=== PATIENT | female | born 1965 | race Caucasian/White ===

== ENCOUNTER 2017-05-13 05:50 | Emergency (ER) | payer OTHER ==
[~2017-05-13] VITALS: Ht 170.2 cm; Wt 95.0 kg
[2017-05-13 05:51] VITALS: BP 180/90; PULSE 77; RESP 16; TEMP 98.1; O2SAT 100
[2017-05-13] MEDS ORDERED: TOPA50TA7 PO (06:00)
--- NOTE | 2017-05-13 06:15 | PD ---
HPI Chief Complaint: Injury Time Seen by Provider: 06:02 Travel History International Travel<30 days: No Contact w/Intl Traveler<30days: No Traveled to known affect area: No History of Present Illness HPI 52-year-old white female presents to emergency Department with complaints of right Achilles pain. She states that she was walking on a flat surface and developed sudden onset pain and what she felt was a popping sensation. Since then she's had difficulty ambulating due to pain. Pain is mild to moderate. Some relief with elevation. Worse with walking. She denies any use of quinolones. No direct trauma. [facility] Past Medical History Narrative Medical Migraines Headaches: Yes Immunizations Current: Yes Tetanus Vaccination: < 5 Years Influenza Vaccination: Yes ?: Not Past Surgical History Surgical History: No Previous Surgery Social History Alcohol Use: No Tobacco Use: No Substance Use: No Allergies-Medications (Allergen,Severity, Reaction): Coded Allergies: cephalexin (Verified Allergy, Severe, Rash, 05/13/17) penicillin V (Verified Allergy, Severe, Arrhythmias, 05/13/17) Reported Meds & Prescriptions Reported Meds & Active Scripts Active Reported Topamax (Topiramate) 50 Mg Tab 50 Mg PO DAILY Review of Systems General / Constitutional: No: Fever Eyes: No: Visual changes HENT: No: Headaches Cardiovascular: No: Chest Pain or Discomfort Respiratory: No: Shortness of Breath Gastrointestinal: No: Abdominal Pain Genitourinary: No: Dysuria Musculoskeletal: Positive: Limited ROM, Weakness, Pain Skin: No Rash Neurologic: No: Weakness Psychiatric: No: Depression Endocrine: No: Polydipsia Hematologic/Lymphatic: No: Easy Bruising Physical Exam Narrative GENERAL: This is a well-nourished, well-developed patient, in no apparent distress. SKIN: No rashes, ecchymoses or lesions. Warm and dry. HEAD: Atraumatic. Normocephalic. EYES: PERRL, EOMI, no discharge or injection. No scleral icterus. EARS: Clear NOSE: Nasal turbinates appear normal. THROAT: Mucosa pink and moist. Airway patent. NECK: Trachea midline. supple, moves head freely. LUNGS: Clear to auscultation. CV: Regular in rhythm. ABDOMEN: Soft nontender. EXT: No clubbing cyanosis or edema. Patient is examined in the prone position. Patient has a positive Sanders test on the left and the right. She has tenderness along the Achilles at the insertion of the heel. There is no step off or deformity along the Achilles. There is no significant swelling. No erythema or skin breakdown. There is no bony tenderness. Range of motion is full. Neurovascular intact distally. Ambulates with an antalgic gait. Data Data Last Documented VS Vital Signs Date Time Temp Pulse Resp B/P (MAP) Pulse Ox O2 Delivery O2 Flow Rate FiO2 05/13/17 05:51 98.1 77 16 180/90 (120) 100 Room Air Orders Orders Ice/Cold Pack (05/13/17 06:09) Splint Or Brace Apply/Monitor (05/13/17 06:09) Crutches (05/13/17 06:09) Ed Discharge Order (05/13/17 06:09) MDM Medical Decision Making Medical Screen Exam Complete: Yes Emergency Medical Condition: Yes Medical Record Reviewed: Yes Differential Diagnosis MDM: High Differential diagnoses: Fracture, sprain, strain, dislocation, contusion, neurovascular injury, Achilles strain, Achilles rupture Narrative Course Patient's exam is inconsistent with a complete Achilles tendon rupture. The patient is advised to be nonweightbearing and to follow-up with a orthopedist or gold marker. Patient is continued 800 mg of ibuprofen 3 times daily. Diagnosis Primary Impression: Strain of right Achilles tendon, initial encounter Patient Instructions: General Instructions Departure Forms: Tests/Procedures, Work Release Special Instructions: Sedentary work 3 days. Additional Instructions: Rest. Elevation. Ice packs for the next 3 days. Yrn wrap and crutches. No weight-bearing. Continue to take her Motrin 800 mg 3 times daily. Follow-up with an orthopedist or gold marker in the next 2-3 days. Return to the ER if any problems Disposition: 01 DISCHARGE HOME Condition: Stable Alec Yang May 13, 2017 06:15
== END 2017-05-13 06:26 | disposition home or self-care (01) ==
LOC: NEPD 05:50
DX: S86.011A Strain of right Achilles tendon, initial encounter (principal); Z79.899 Other long term (current) drug therapy; Z88.0 Allergy status to penicillin; Z88.8 Allergy status to other drugs, medicaments and biological substances; Y93.01 Activity, walking, marching and hiking
CPT/HCPCS: 99283; E0113